=== PATIENT | male | born 1995 | race Caucasian/White ===

== ENCOUNTER 2024-10-31 04:39 | Emergency (ER) | payer MEDICAID ==
[~2024-10-31] VITALS: Ht 165.1 cm; Wt 119.0 kg
[2024-10-31 04:46] VITALS: TEMP 36.9; O2SAT 98
[2024-10-31] MEDS ORDERED: BO1 TP (05:18)
[2024-10-31] MEDS ORDERED: IBUP-1455 MT (05:18)
[2024-10-31] MEDS: IBUPROFEN 600MG TABLET PO ONE (05:19)
[2024-10-31] MEDS: TETANUS, DIPHTHERIA, PERTUSSIS VAC/PF 0.5ML (>10YR OLD) IM ONE (05:19)
[2024-10-31] MEDS: BACITRACIN ZINC OINT UDPKT TOP ONE (05:19)
[2024-10-31] MEDS: LIDOCAINE HCL 1% 20ML VIAL INFIL ONE (05:25)
[2024-10-31 05:33] VITALS: BP 129/77; PULSE 92; RESP 12; O2SAT 96
== END 2024-10-31 05:35 | disposition home or self-care (01) ==
LOC: ER 04:39
DX: S61.210A Laceration without foreign body of right index finger without damage to nail, initial encounter (principal); Z91.52 Personal history of nonsuicidal self-harm; W26.0XXA Contact with knife, initial encounter; Y93.89 Activity, other specified; Y92.89 Other specified places as the place of occurrence of the external cause; Y99.8 Other external cause status
CPT/HCPCS: 90715; 12001; 90471; 99283; J2003; Z7610